=== PATIENT | male | born 1935 | race Caucasian/White ===

== ENCOUNTER 2016-11-03 12:04 | Inpatient (IN) ==
--- NOTE | 2016-11-03 14:27 | Emergency Department Note ---
Arrival - Arrival Chief Complaint: Extremity Problem Stated Complaint: possible blood clot weakness in legs ED Nursing Triage Note: Pt states that he is having pain in his left leg and left groin area onset yesetrday after cutting grass Mode of Arrival: Wheelchair Limitations: No Limitations Source: Patient Time Seen by Provider: 11/03/16 14:16 - History of Present Illness HPI Narrative: The patient complains of pain in the left groin, thigh and posterior knee for the past 3-4 days. It got much worse yesterday after cutting the grass. He also complains of weakness in his legs. This has been going on for approximately 2 weeks, since he had a back injection at the pain clinic. 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 He was also diagnosed with a superficial venous thrombus in the right leg approximately 2 weeks ago. He is on Coumadin. He denies any shortness of breath or other symptoms. Allergies/Adverse Reactions: Allergies Allergy/AdvReac Type Severity Reaction Status Date / Time No Known Allergies Allergy Unverified 05/07/16 11:41 Home Medications: Home Medications Medication Instructions Recorded Confirmed Type Allopurinol 300 mg PO DAILY 05/07/16 11/03/16 History Amitriptyline HCl 100 mg PO DAILY 05/07/16 11/03/16 History Cyanocobalamin (Vitamin B-12) 1,000 mcg PO Q30D 05/07/16 11/03/16 History [Vitamin B-12] Finasteride 5 mg PO DAILY 05/07/16 11/03/16 History Gabapentin 400 mg PO 5X DAILY 05/07/16 11/03/16 History Meclizine HCl 25 mg PO TID 05/07/16 11/03/16 History Terazosin HCl 10 mg PO DAILY 05/07/16 11/03/16 History Theophylline ER Tab 300 mg PO BID W/MEALS 05/07/16 11/03/16 History metFORMIN [Glucophage] 500 mg PO QID 05/07/16 11/03/16 History Diazepam Tab [Valium Tab] 2 mg PO DAILY PRN 11/03/16 11/03/16 History Losartan [Cozaar] 25 mg PO DAILY 11/03/16 11/03/16 History Multivitamin (Ocuvite) [Ocuvite] 1 tablet PO DAILY 11/03/16 11/03/16 History Omeprazole [Prilosec] 20 mg PO DAILY 11/03/16 11/03/16 History Warfarin [Coumadin] 2 mg PO DAILY 11/03/16 11/03/16 History Review of System - Review of System 12 point system: reviewed and no additional remarkable complaints except as stated - Review of System Musculoskeletal: Present: leg pain Medical,Surgical,& Family Hx - Medical History Cardio: History of: Hypertension Neurology: History of: Neurological Problems (Neuropathy) Endocrine: History of: Diabetes Mellitus (NIDDM) Musculoskeletal: History of: Back/Neck Problems (Chronic back pain, sees pain clinic) Hematology: History of: Clotting Problems (Multiple DVTs) Other: History of: Miscellaneous Medical Problems (DVT) - Surgical History HEENT Surgeries: Surgical HX of: Eye Surgery (cataracts) Abdominal Surgeries: Surgical HX of: Appendectomy Orthopedic Surgeries: Surgical HX of;: Total Knee Replacement (Bilateral) - Family History Family History: Reports;: Family Heart Disease (mother) - Social History Smoking Status: Never smoker Frequency of Alcohol Use: None Type of Drug Use: None Exam Physical Examination: GENERAL: Alert. No acute distress. HEENT: Normocephalic and atraumatic. There is no nasal drainage. No pharyngeal erythema or exudate. NECK: Normal inspection. Supple. No lymphadenopathy or meningismus. LUNGS: No respiratory distress. Clear to auscultation bilaterally, no wheezes, rales or rhonchi. HEART: Regular rate and rhythm. ABDOMEN: Soft, nontender and nondistended with normoactive bowel sounds. BACK: Normal inspection. SKIN: Color normal. Warm and dry. EXTREMITIES: There is tenderness in the left groin and the upper calf and popliteal fossa on the left. No cord palpated. Homans positive. There is pitting edema to the mid tibias bilaterally. The left is slightly worse than the right. There is a slightly indurated superficial vein on the right medial calf and the left inner thigh. Range of motion is full bilaterally and both lower extremities are neurovascularly intact. The remainder of the extremity exam is normal. NEUROLOGICAL/PSYCHIATRIC: Alert and oriented -3 with normal mood and affect. Cranial nerves normal. No motor or sensory deficit. Vital Signs: Vital Signs Temperature 98.1 F 11/03/16 12:21 Pulse Rate 84 11/03/16 15:03 Respiratory Rate 20 11/03/16 15:03 Blood Pressure 153/81 11/03/16 15:03 O2 Sat by Pulse Oximetry 96 11/03/16 15:03 Course - Reevaluation(s) Reevaluation #1: The patient has an acute DVT. His INR is subtherapeutic. I discussed patient with the hospitalist service who will see him and admit. Time: 15:50 Results - Labs CBC & BMP: 11/03/16 15:10 Lab Results: I have reviewed the patients labs Labs: Laboratory Tests 11/03/16 15:10 INR 1.4 PT Patient/Control Mix 15.0 D-Dimer, Quantitative 13.7 - Impressions Doppler of the left lower extremity: There is noncompressible abnormal echogenic material within the lumen of the left common femoral, superficial femoral, and popliteal veins compatible with acute DVT. Hip x-ray showed mild osteoarthritis. Disposition Clinical Impression: Deep vein thrombosis of lower extremity Case discussed with: patient, patient's family Disposition: Still a Patient Condition: Stable Time of Disposition: 15:51
--- NOTE | 2016-11-03 14:51 | XRay Report ---
XR hip 2V LT Indication: Pain. Left hip 2 views: Joint space is maintained. Acetabular osteophyte development is mild in severity. No fracture. No dislocation. Patient is somewhat osteopenic. Visualized left hemipelvis is unremarkable. Impression: Mild left hip osteoarthritis. Osteopenia. PROCEDURE INTERPRETED AT [facility] [place] DEPARTMENT OF RADIOLOGY Final Report Signed by: David Shen M.D.
--- NOTE | 2016-11-03 15:06 | Ultrasound Report ---
History: Left leg swelling and pain Date: 11/03/2016 Study: Left lower extremity color-flow venous Doppler study Comparison exam: Bilateral venous ultrasound May 11, 2016 Color Doppler, wave form analysis, and compression analysis of the deep veins of the left lower extremity from the common femoral vein level through the popliteal vein level was performed. There is noncompressible abnormal echogenic material within the lumen of the left common femoral, superficial femoral, and popliteal veins compatible with acute DVT. Preliminary verbal report was given to Dr. Garcia at 2:58 PM. Critical test result. Ultrasound images were captured and archived Impression: Acute DVT left lower extremity PROCEDURE INTERPRETED AT [facility] DEPARTMENT OF RADIOLOGY Final Report Signed by: Dr. Dariela Perez
[2016-11-03 15:20] LABS: Basophils % 0.5 % (0.0-0.8); Eosinophils # 0.2 10*3/uL (0.0-0.87); Eosinophils % 1.9 % (0.00-10.9); Hematocrit 35.7 VOL% (42.0-52.0); Hemoglobin 12.2 GM/DL (14.0-18.0); Immature Granulocytes % 0.5 %; Immature Granulocytes Absolute 0.04 #; Lymphocytes # 1.4 10*3/uL (1.4-4.0); Lymphocytes % 16.8 % (21.2-54.2); Mean Corpuscular HGB Conc 34.2 GM/DL (32-36); Mean Corpuscular Hemoglobin 31 PG (27-34); Mean Corpuscular Volume 89.7 FL (87-102); Mean Platelet Volume 10.9 FL (9.6-12.0); Monocytes # 1.1 10*3/uL (0.11-0.8); Monocytes % 13.2 % (1.7-12.7); Neutrophils # 5.7 10*3/uL (1.4-7.4); Neutrophils % 67.1 % (38.7-73.9); Platelet Count 133 T/CUMM (130-400); Red Blood Count 3.98 MC/CUMM (3.8-5.5); White Blood Count 8.5 T/CUMM (4-12)
[2016-11-03 15:32] LABS: INR 1.4; Partial Thromboplastin Time 32.7 SECS (0-40)
[2016-11-03 15:40] LABS: D-Dimer 13.7 MG/L FEU
[2016-11-03 15:43] LABS: Calcium 9.2 MG/DL (8.5-10.1); Osmolality,Calculated 280.5 MOS/KG (273-304); Potassium 4.6 MMOL/L (3.5-5.1)
[2016-11-03] MEDS ORDERED: ACETAMINOPHEN 325 MG TABLET PO PRN (16:47)
[2016-11-03] MEDS ORDERED: DEXTROSE 50% 25 GM/50 ML VIAL IV PRN (16:47)
[2016-11-03] MEDS ORDERED: GLUCAGON 1 MG VIAL IM PRN (16:47)
[2016-11-03] MEDS ORDERED: DIAZEPAM 2 MG TABLET PO PRN (16:51)
--- NOTE | 2016-11-03 17:03 | Hospitalist History & Physical ---
Assessment and Plan (1) Hypertension Status: Acute Current Visit: No Qualifiers: Hypertension type: essential hypertension Qualified Code(s): I10 - Essential (primary) hypertension (2) Chronic anticoagulation Status: Acute Current Visit: No (3) Deep vein thrombosis of lower extremity Status: Acute Assessment and plan: We will admit the patient our service. Patient will be placed on monitored bed. We will give him full dose Lovenox. Increase his Coumadin to 5 mg p.o. daily starting today. Patient will most likely need to be discharged with Lovenox and increase Coumadin dose. Continue other home meds as appropriate. Current Visit: Yes History of Present Illness Chief complaint: Lower extremity swelling History of present illness: Mr. Louise Ahumada is a 81 year old male with past medical history significant for DVTs diabetes hypertension and neuropathy who is in his normal state of health until past few days. Patient noted his lower extremity have been swelling. He had recently had a epidural injection to where he was taken off his anticoagulants. It was not bridged. No Lovenox was given to this patient. He was restarted on his Coumadin. He is found to be subtherapeutic and I was consulted to admit him. Home Medications Medication Instructions Recorded Confirmed Type Allopurinol 300 mg PO DAILY 05/07/16 11/03/16 History Amitriptyline HCl 100 mg PO DAILY 05/07/16 11/03/16 History Cyanocobalamin (Vitamin B-12) 1,000 mcg PO Q30D 05/07/16 11/03/16 History [Vitamin B-12] Finasteride 5 mg PO DAILY 05/07/16 11/03/16 History Gabapentin 400 mg PO 5X DAILY 05/07/16 11/03/16 History Meclizine HCl 25 mg PO TID 05/07/16 11/03/16 History Terazosin HCl 10 mg PO DAILY 05/07/16 11/03/16 History Theophylline ER Tab 300 mg PO BID W/MEALS 05/07/16 11/03/16 History metFORMIN [Glucophage] 500 mg PO QID 05/07/16 11/03/16 History Diazepam Tab [Valium Tab] 2 mg PO DAILY PRN 11/03/16 11/03/16 History Losartan [Cozaar] 25 mg PO DAILY 11/03/16 11/03/16 History Multivitamin (Ocuvite) [Ocuvite] 1 tablet PO DAILY 11/03/16 11/03/16 History Omeprazole [Prilosec] 20 mg PO DAILY 11/03/16 11/03/16 History Warfarin [Coumadin] 2 mg PO DAILY 11/03/16 11/03/16 History Allergies Allergy/AdvReac Type Severity Reaction Status Date / Time No Known Allergies Allergy Unverified 05/07/16 11:41 Medical,Surgical,& Family Hx - Medical History Cardio: History of: Hypertension Neurology: History of: Neurological Problems (Neuropathy) Endocrine: History of: Diabetes Mellitus (NIDDM) Musculoskeletal: History of: Back/Neck Problems (Chronic back pain, sees pain clinic) Hematology: History of: Clotting Problems (Multiple DVTs) Other: History of: Miscellaneous Medical Problems (DVT) - Surgical History HEENT Surgeries: Surgical HX of: Eye Surgery (cataracts) Abdominal Surgeries: Surgical HX of: Appendectomy Orthopedic Surgeries: Surgical HX of;: Total Knee Replacement (Bilateral) - Family History Family History: Reports;: Family Heart Disease (mother) - Social History Smoking Status: Never smoker Frequency of Alcohol Use: None Type of Drug Use: None 12 point system: reviewed and no additional remarkable complaints except as stated Exam - Constitutional Vitals: Period Temp Pulse Resp BP Sys/Nevarez Pulse Ox Last 24 Hr 98.1 F 71-84 20-20 144-153/81-94 96-97 General appearance: normal weight - Head Head exam: Present: normal inspection - Eye Eye exam: Present: EOMI Pupils: Present: SUNSHINE - ENT ENT exam: Present: normal exam - Neck Neck exam: Present: normal inspection - Respiratory Respiratory exam: Present: clear to auscultation bilaterally - Cardiovascular Cardiovascular exam: Present: regular rate and rhythm - GI/Abdominal GI/Abdominal exam: Present: normal bowel sounds - Extremities Exam Extremities exam: Present: other (Patient does have tenderness in the left groin area. There is also tenderness noted in the popliteal fossa. There is some mild pitting edema bilaterally left greater than right. Sensation is intact) - Back Exam Back exam: Present: normal inspection - Neurological Exam Neurological exam: Present: alert, oriented X3 - Psychiatric Psychiatric exam: Present: normal affect, normal mood - Skin Skin exam: Present: normal color Results - Labs CBC & BMP: 11/03/16 15:10 11/03/16 15:10
[2016-11-03] MEDS: GABAPENTIN 400 MG CAPSULE PO SCH ×2 (17:30→21:55)
[2016-11-03] MEDS: metFORMIN 500 MG TABLET PO SCH ×2 (17:30→21:55)
[2016-11-03] MEDS: WARFARIN 5 MG TABLET PO SCH (17:30)
[2016-11-03] MEDS: THEOPHYLLINE ER 300 MG TABLET PO SCH (17:31)
[2016-11-03] MEDS: ENOXAPARIN 100 MG/ML SYRINGE SUBCUT SCH (17:44)
[2016-11-03] MEDS: INSULIN REGULAR 100 UNIT/ML SUBCUT SCH (21:55)
[2016-11-03] MEDS: MECLIZINE 25 MG TABLET PO SCH (21:55)
[2016-11-04] MEDS: GABAPENTIN 400 MG CAPSULE PO SCH ×5 (05:53→21:55)
[2016-11-04] MEDS: ENOXAPARIN 100 MG/ML SYRINGE SUBCUT SCH ×2 (05:53→20:55)
[2016-11-04 06:49] LABS: INR 1.4; PT Patient Result 15.4 SECS
[2016-11-04] MEDS: THEOPHYLLINE ER 300 MG TABLET PO SCH ×2 (09:16→16:18)
[2016-11-04] MEDS: MULTIVITAMIN (OCUVITE) TABLET PO SCH (09:16)
[2016-11-04] MEDS: metFORMIN 500 MG TABLET PO SCH ×4 (09:16→20:52)
[2016-11-04] MEDS: FINASTERIDE 5 MG TABLET PO SCH (09:17)
[2016-11-04] MEDS: LOSARTAN 25 MG TABLET PO SCH (09:17)
[2016-11-04] MEDS: MECLIZINE 25 MG TABLET PO SCH ×3 (09:17→20:52)
[2016-11-04] MEDS: TERAZOSIN 5 MG CAPSULE PO SCH (09:17)
[2016-11-04] MEDS: INSULIN REGULAR 100 UNIT/ML SUBCUT SCH ×4 (09:17→20:55)
[2016-11-04] MEDS: AMITRIPTYLINE 100 MG TABLET PO SCH (09:17)
[2016-11-04] MEDS: ALLOPURINOL 300 MG TABLET PO SCH (09:17)
[2016-11-04] MEDS: PANTOPRAZOLE 40 MG TABLET PO SCH (09:17)
--- NOTE | 2016-11-04 13:26 | Hospitalist Progress Note ---
Assessment and Plan (1) Diabetes mellitus type 2 in nonobese Status: Chronic Assessment and plan: Metformin SSI Current Visit: No (2) Hypertension Status: Chronic Assessment and plan: Home meds Current Visit: No Qualifiers: Hypertension type: essential hypertension Qualified Code(s): I10 - Essential (primary) hypertension (3) Deep vein thrombosis of lower extremity Status: Acute Assessment and plan: On lovenox Coumadin increased Current Visit: Yes Hospitalist: Subjective Interval history: No acute events overnight. This morning patient without complaints, reports that his leg pain is much better. Encouraged to ambulate some today. Family arrived later this morning and report that patient is still complaining of leg pain and is very weak. Will plan for discharge tomorrow on lovenox and coumadin with pcp follow-up. Exam - Constitutional Vitals: Period Temp Pulse Resp BP Sys/Nevarez Pulse Ox Last 24 Hr 97.0 F-100.4 F 53-95 18-22 112-162/66-94 92-98 General appearance: over weight - Head Head exam: Present: normocephalic, atraumatic - Eye Eye exam: Present: EOMI Pupils: Present: SUNSHINE - ENT ENT exam: Present: normal exam - Neck Neck exam: Present: normal inspection - Respiratory Respiratory exam: Present: clear to auscultation bilaterally. Absent: rhonchi, wheezes - Cardiovascular Cardiovascular exam: Present: regular rate and rhythm - GI/Abdominal GI/Abdominal exam: Present: normal bowel sounds, soft. Absent: tenderness, rebound - Extremities Exam Extremities exam: Present: normal inspection - Back Exam Back exam: Present: normal inspection - Neurological Exam Neurological exam: Present: alert, oriented X3 - Psychiatric Psychiatric exam: Present: normal affect, normal mood - Skin Skin exam: Present: warm, intact Results - Labs CBC & BMP: 11/03/16 15:10 11/03/16 15:10 Specialty Discharge - Follow Up or Referrals Follow up with: Elliott Guerin DO [Primary Care Provider] - 11/08/16 10:30 am
[2016-11-04] MEDS: WARFARIN 5 MG TABLET PO SCH (17:31)
[2016-11-05] MEDS: GABAPENTIN 400 MG CAPSULE PO SCH ×2 (05:26→09:58)
[2016-11-05 06:05] LABS: INR 1.5; PT Patient Result 16.7 SECS
[2016-11-05 08:02] VITALS: BP 167/79
[2016-11-05] MEDS: INSULIN REGULAR 100 UNIT/ML SUBCUT SCH (08:14)
[2016-11-05] MEDS: ENOXAPARIN 100 MG/ML SYRINGE SUBCUT SCH (09:57)
[2016-11-05] MEDS: FINASTERIDE 5 MG TABLET PO SCH (09:57)
[2016-11-05] MEDS: MULTIVITAMIN (OCUVITE) TABLET PO SCH (09:57)
[2016-11-05] MEDS: MECLIZINE 25 MG TABLET PO SCH (09:57)
[2016-11-05] MEDS: PANTOPRAZOLE 40 MG TABLET PO SCH (09:57)
[2016-11-05] MEDS: ALLOPURINOL 300 MG TABLET PO SCH (09:57)
[2016-11-05] MEDS: LOSARTAN 25 MG TABLET PO SCH (09:57)
[2016-11-05] MEDS: AMITRIPTYLINE 100 MG TABLET PO SCH (09:57)
[2016-11-05] MEDS: TERAZOSIN 5 MG CAPSULE PO SCH (09:57)
[2016-11-05] MEDS: THEOPHYLLINE ER 300 MG TABLET PO SCH (09:57)
[2016-11-05] MEDS: metFORMIN 500 MG TABLET PO SCH (09:57)
--- NOTE | 2016-11-05 10:21 | Discharge Summary ---
<Xiomara Barreranikkie - Last Filed: 11/05/16 10:12> Hospital Course - Hospital Course Hospital Course: Mr. Quijano is a 81 yr old white male with DVTs, htn, renal insufficiency, panceratitis, and DM that presented to the ED on 11/03 for further evaluation of lower extremity edema and pain. On examination in the ED, patient was found to have an acute left extremity DVT. INR was noted to be 1.4. Pt. was admitted to the hospitalist program for evaluation and treatment. His coumadin was increased to 5 mg. He was started on weight based lovenox. Pt. is stable today and ready for discharge. Pt. instructed to follow up with his PCP early next week. Specialty Discharge - Follow Up or Referrals Follow up with: Elliott Guerin DO [Primary Care Provider] - 11/08/16 10:30 am Discharge Plan - Discharge Data Disposition: Disch To Home/Self Care - Discharge Medications New Warfarin [Coumadin] 5 mg PO DAILY@1800 #30 tablet Enoxaparin [Lovenox] 150 mg SUBCUT Q24H #7 syringe Continue Finasteride 5 mg PO DAILY Gabapentin 400 mg PO 5X DAILY Allopurinol 300 mg PO DAILY Amitriptyline HCl 100 mg PO DAILY Theophylline ER Tab 300 mg PO BID W/MEALS Terazosin HCl 10 mg PO DAILY Meclizine HCl 25 mg PO TID metFORMIN [Glucophage] 500 mg PO QID Cyanocobalamin (Vitamin B-12) [Vitamin B-12] 1,000 mcg PO Q30D Multivitamin (Ocuvite) [Ocuvite] 1 tablet PO DAILY Diazepam Tab [Valium Tab] 2 mg PO DAILY PRN PRN Reason: Dizziness glipiZIDE [Glipizide] 5 mg PO BID Omeprazole [Prilosec] 20 mg PO DAILY Losartan [Cozaar] 25 mg PO DAILY Discontinued Warfarin [Coumadin] 2 mg PO DAILY - Follow Up or Referral Follow Up: Elliott Guerin DO [Primary Care Provider] - 11/08/16 10:30 am - Forms/Instructions Exam - Constitutional Vitals: Period Temp Pulse Resp BP Sys/Nevarez Pulse Ox Last 24 Hr 96.6 F-98.5 F 65-92 18-20 114-167/58-79 92-97 Discharge Results Labs on day of discharge: Labs from last 24 hours 11/05/16 11/05/16 11/04/16 07:29 04:41 20:38 INR 1.5 PT Patient/Control Mix 16.7 POC Glucose 137 H 150 H 11/04/16 11/04/16 15:13 11:23 INR PT Patient/Control Mix POC Glucose 183 H 165 H DS: Provider Date of admission: 11/04/16 13:09 Primary care physician: Elliott Guerin DO Attending physician on admission: David Ayala MD Consults: 11/04/16 13:07 Consult to Physical Therapy [CONS] Routine Reason for Physical Therapy: Evaluate and Treat Discharging clinician: Di Barrera NP <Kathleen Bhakta - Last Filed: 11/05/16 10:28> Hospital Course - Time spent with patient Time with patient DS: Less than 30 minutes (25) Diagnosis - Discharge Diagnosis (1) Diabetes mellitus type 2 in nonobese Status: Chronic (2) Hypertension Status: Chronic (3) Deep vein thrombosis of lower extremity Status: Chronic Discharge Plan - Discharge Data Condition at Discharge: Stable Discharge Diet: advance to your usual diet Activity: increase activity as tolerated Hygiene: no restrictions Weight Bearing at Discharge: weight bear as tolerated Driving: no restrictions Contact your physician if you experience:: fever over 101, Redness or swelling, Shortness of breath Exam - Constitutional General appearance: over weight - Head Head exam: Present: normocephalic, atraumatic - Eye Eye exam: Present: EOMI Pupils: Present: SUNSHINE - ENT ENT exam: Present: normal exam - Neck Neck exam: Present: normal inspection - Respiratory Respiratory exam: Present: clear to auscultation bilaterally. Absent: wheezes - Cardiovascular Cardiovascular exam: Present: regular rate and rhythm - GI/Abdominal GI/Abdominal exam: Present: normal bowel sounds, soft. Absent: tenderness, rebound - Extremities Exam Extremities exam: Present: normal inspection - Back Exam Back exam: Present: normal inspection - Neurological Exam Neurological exam: Present: alert, oriented X3 - Psychiatric Psychiatric exam: Present: normal affect, normal mood - Skin Skin exam: Present: warm, intact
[2016-11-29] MEDS ORDERED: CYANOCOBALAMIN 500 MCG TABLET PO SCH (09:00)
== END 2016-11-05 11:15 | disposition home or self-care (01) | DRG 301 ==
LOC: N.ED 12:04 → N.EDINP 12:04 → SUATTDRO 16:06 → N.2E 17:07
PROVIDERS: ADMIT Internal Medicine; ATTEND Internal Medicine

== ENCOUNTER 2017-08-11 14:08 | Inpatient (IN) ==
[2017-08-11] MEDS ORDERED: LOPERAMIDE 2 MG CAPSULE PO STA (14:46)
[2017-08-11] MEDS ORDERED: ONDANSETRON 4 MG/2 ML VIAL IV STA (14:46)
[2017-08-11] MEDS ORDERED: SODIUM CHLORIDE 0.9% 1,000 ML IV STA ×2 (14:46→18:04)
[2017-08-11] MEDS ORDERED: LOPERAMIDE 2 MG CAPSULE ONE (15:26)
[2017-08-11] MEDS ORDERED: ONDANSETRON 4 MG/2 ML VIAL ONE (15:26)
[2017-08-11 15:30] LABS: Basophils % 0.1 % (0.0-0.8); Eosinophils % 0.2 % (0.00-10.9); Hemoglobin 13.3 GM/DL (14.0-18.0); Immature Granulocytes % 0.4 %; Immature Granulocytes Absolute 0.04 #; Lymphocytes # 0.5 10*3/uL (1.4-4.0); Lymphocytes % 4.5 % (21.2-54.2); Mean Corpuscular HGB Conc 32.4 GM/DL (32-36); Mean Corpuscular Hemoglobin 29 PG (27-34); Mean Corpuscular Volume 88.9 FL (87-102); Mean Platelet Volume 11.3 FL (9.6-12.0); Monocytes # 0.8 10*3/uL (0.11-0.8); Monocytes % 7.9 % (1.7-12.7); Neutrophils # 8.9 10*3/uL (1.4-7.4); Neutrophils % 86.9 % (38.7-73.9); Platelet Count 131 T/CUMM (130-400); Red Blood Count 4.61 MC/CUMM (3.8-5.5); Red Cell Distribution Width 14.7 % (9.3-17.3); White Blood Count 10.2 T/CUMM (4-12)
[2017-08-11 15:49] LABS: Albumin 3.8 G/DL (3.4-5.0); Bilirubin,Total 2.5 MG/DL (0.2-1.0); Calcium 9.4 MG/DL (8.5-10.1); Osmolality,Calculated 283.7 MOS/KG (273-304); Potassium 4.4 MMOL/L (3.5-5.1); Total Protein 7.8 G/DL (6.4-8.3)
[2017-08-11 16:11] LABS: Apearance,Urine CLEAR (Clear); Bilirubin,Urine Negative (Negative); Blood, Urine Negative (Negative); Glucose,Urine (UA) Negative (Negative); Ketones,Urine Negative (Negative); Nitrite,Urine Negative (Negative); Protein,Urine 100 MG/DL; RBC,Urine 6 /HPF (0-4); Squamous Epithelial Cell,Urine Occasional /HPF (0-10); Urine Color Amber (Yellow); Urine Specific Gravity 1.015 (1.001-1.035); WBC,Urine 3 /HPF (0-6)
[2017-08-11] MEDS ORDERED: PIPERACILLIN/TAZOBACTAM 4,500 MG in SODIUM CHLORIDE 0.9% 100 ML IV STA (16:27)
[2017-08-11] MEDS ORDERED: PIPERACILLIN/TAZOBACTAM 4,500 MG VIAL IV ONE (16:52)
[2017-08-11 17:13] LABS: Band Neutrophils 20 % (0-10); Lymphocytes 1 % (20-55); Segmented Neutrophils 73 % (50-85); Total Cells Counted 100
[2017-08-11 17:15] LABS: Anisocytosis 1+; Ovalocytes Few; Platelet Estimate Normal
[2017-08-11 17:32] LABS: Lactic Acid 3.4 MMOL/L (0.4-2.0)
[2017-08-11] MEDS ORDERED: ACETAMINOPHEN 500 MG TABLET ONE (17:37)
[2017-08-11] MEDS ORDERED: ACETAMINOPHEN 500 MG TABLET PO STA (17:41)
[2017-08-11] MEDS ORDERED: ONDANSETRON 4 MG/2 ML VIAL IV PRN (20:14)
[2017-08-11] MEDS ORDERED: GLUCAGON 1 MG VIAL IM PRN (21:06)
[2017-08-11] MEDS ORDERED: DEXTROSE 50% 25 GM/50 ML VIAL IV PRN (21:06)
[2017-08-11] MEDS ORDERED: IBUPROFEN 600 MG TABLET PO PRN (21:20)
[2017-08-11] MEDS: GABAPENTIN 400 MG CAPSULE PO SCH (22:15)
[2017-08-11] MEDS: SODIUM CHLORIDE 0.9% 1,000 ML IV SCH (22:19)
[2017-08-11] MEDS: cefTRIAXone 1,000 MG in SODIUM CHLORIDE 0.9% 100 ML IV SCH (22:24)
[2017-08-11 23:15] LABS: INR 2.6; Partial Thromboplastin Time 38.3 SECS (0-40)
[2017-08-11 23:21] LABS: INR 2.6
[2017-08-11 23:23] LABS: Lactic Acid 2.8 MMOL/L (0.4-2.0)
[2017-08-11 23:28] LABS: PT Patient Result 26.2 SECS; PT Patient Result 26.4 SECS
[2017-08-12 00:23] LABS: Hepatitis A Ab IgM Quant 0.14 Index; Hepatitis A Ab IgM Result Negative (Negative); Hepatitis B Core IgM Quant 0.19 Index; Hepatitis B Core IgM Result Negative (Negative); Hepatitis B Surface Ag Quant 0.16 Index; Hepatitis B Surface Ag Result Negative (Negative); Hepatitis C Virus Ab Quant 0.18 Index; Hepatitis C Virus Ab Result Negative (Negative)
[2017-08-12] MEDS: LACTULOSE 20 GM/30 ML UDCUP PO SCH ×5 (01:22→23:56)
[2017-08-12 02:19] LABS: Basophils % 0.2 % (0.0-0.8); Hematocrit 35.2 VOL% (42.0-52.0); Hemoglobin 12.2 GM/DL (14.0-18.0); Immature Granulocytes % 0.3 %; Immature Granulocytes Absolute 0.04 #; Lymphocytes # 0.7 10*3/uL (1.4-4.0); Lymphocytes % 5.8 % (21.2-54.2); Mean Corpuscular HGB Conc 34.7 GM/DL (32-36); Mean Corpuscular Hemoglobin 30 PG (27-34); Mean Corpuscular Volume 85.6 FL (87-102); Mean Platelet Volume 11.5 FL (9.6-12.0); Monocytes # 0.5 10*3/uL (0.11-0.8); Monocytes % 4.2 % (1.7-12.7); Neutrophils # 10.6 10*3/uL (1.4-7.4); Neutrophils % 89.5 % (38.7-73.9); Platelet Count 126 T/CUMM (130-400); Red Blood Count 4.11 MC/CUMM (3.8-5.5); Red Cell Distribution Width 14.7 % (9.3-17.3); White Blood Count 11.8 T/CUMM (4-12)
[2017-08-12 02:44] LABS: Albumin 3.3 G/DL (3.4-5.0); Bilirubin,Total 4.7 MG/DL (0.2-1.0); Calcium 8.3 MG/DL (8.5-10.1); Osmolality,Calculated 279.5 MOS/KG (273-304); Potassium 4.2 MMOL/L (3.5-5.1); Total Protein 6.2 G/DL (6.4-8.3)
[2017-08-12] MEDS: INSULIN REGULAR 100 UNIT/ML SUBCUT SCH ×4 (08:54→21:03)
[2017-08-12] MEDS: glipiZIDE 10 MG TABLET PO SCH (09:07)
[2017-08-12] MEDS: MULTIVITAMIN (OCUVITE) TABLET PO SCH (09:07)
[2017-08-12] MEDS: LOSARTAN 25 MG TABLET PO SCH (09:07)
[2017-08-12] MEDS: GABAPENTIN 600 MG TABLET PO SCH ×2 (09:07→11:29)
[2017-08-12] MEDS: PANTOPRAZOLE 40 MG TABLET PO SCH (09:08)
[2017-08-12] MEDS: FINASTERIDE 5 MG TABLET PO SCH (09:08)
[2017-08-12] MEDS: THEOPHYLLINE ER 300 MG TABLET PO SCH ×2 (09:08→17:09)
[2017-08-12] MEDS: SODIUM CHLORIDE 0.9% 1,000 ML IV SCH ×3 (11:14→21:04)
[2017-08-12] MEDS ORDERED: WARFARIN 4 MG TABLET PO SCH (18:00)
[2017-08-12] MEDS: ALLOPURINOL 300 MG TABLET PO SCH (18:15)
[2017-08-12] MEDS: TERAZOSIN 5 MG CAPSULE PO SCH (18:15)
[2017-08-12] MEDS: cefTRIAXone 1,000 MG in SODIUM CHLORIDE 0.9% 100 ML IV SCH (21:05)
[2017-08-12] MEDS: GABAPENTIN 400 MG CAPSULE PO SCH (21:09)
[2017-08-13] MEDS: SODIUM CHLORIDE 0.9% 1,000 ML IV SCH ×5 (02:51→21:17)
[2017-08-13 05:32] LABS: Basophils % 0.2 % (0.0-0.8); Eosinophils % 0.1 % (0.00-10.9); Hematocrit 36.5 VOL% (42.0-52.0); Hemoglobin 12.6 GM/DL (14.0-18.0); Immature Granulocytes % 0.3 %; Immature Granulocytes Absolute 0.03 #; Lymphocytes # 1.3 10*3/uL (1.4-4.0); Lymphocytes % 13.5 % (21.2-54.2); Mean Corpuscular HGB Conc 34.5 GM/DL (32-36); Mean Corpuscular Hemoglobin 30 PG (27-34); Mean Corpuscular Volume 86.5 FL (87-102); Mean Platelet Volume 12.2 FL (9.6-12.0); Monocytes # 0.7 10*3/uL (0.11-0.8); Monocytes % 6.8 % (1.7-12.7); Neutrophils # 7.5 10*3/uL (1.4-7.4); Neutrophils % 79.1 % (38.7-73.9); Platelet Count 110 T/CUMM (130-400); Red Blood Count 4.22 MC/CUMM (3.8-5.5); Red Cell Distribution Width 15.1 % (9.3-17.3); White Blood Count 9.5 T/CUMM (4-12)
[2017-08-13] MEDS: LACTULOSE 20 GM/30 ML UDCUP PO SCH ×4 (05:53→23:42)
[2017-08-13 05:55] LABS: INR 2.4
[2017-08-13 06:02] LABS: Calcium 8.2 MG/DL (8.5-10.1); Osmolality,Calculated 282.3 MOS/KG (273-304); PT Patient Result 24.5 SECS; Potassium 3.8 MMOL/L (3.5-5.1)
[2017-08-13] MEDS: INSULIN REGULAR 100 UNIT/ML SUBCUT SCH ×4 (08:28→22:40)
[2017-08-13] MEDS: glipiZIDE 10 MG TABLET PO SCH (08:53)
[2017-08-13] MEDS: FINASTERIDE 5 MG TABLET PO SCH (08:53)
[2017-08-13] MEDS: GABAPENTIN 600 MG TABLET PO SCH ×2 (08:53→13:30)
[2017-08-13] MEDS: THEOPHYLLINE ER 300 MG TABLET PO SCH ×2 (08:53→16:57)
[2017-08-13] MEDS: PANTOPRAZOLE 40 MG TABLET PO SCH (08:53)
[2017-08-13] MEDS: LOSARTAN 25 MG TABLET PO SCH (08:53)
[2017-08-13] MEDS: MULTIVITAMIN (OCUVITE) TABLET PO SCH (08:53)
[2017-08-13] MEDS ORDERED: WARFARIN 3 MG TABLET PO SCH (18:00)
[2017-08-13] MEDS: ALLOPURINOL 300 MG TABLET PO SCH (18:17)
[2017-08-13] MEDS: TERAZOSIN 5 MG CAPSULE PO SCH (18:17)
[2017-08-13] MEDS: GABAPENTIN 400 MG CAPSULE PO SCH (21:17)
[2017-08-13] MEDS: cefTRIAXone 1,000 MG in SODIUM CHLORIDE 0.9% 100 ML IV SCH (21:18)
[2017-08-14] MEDS: SODIUM CHLORIDE 0.9% 1,000 ML IV SCH ×4 (03:00→21:55)
[2017-08-14 04:35] LABS: Basophils % 0.2 % (0.0-0.8); Eosinophils # 0.1 10*3/uL (0.0-0.87); Eosinophils % 1.1 % (0.00-10.9); Hematocrit 32.8 VOL% (42.0-52.0); Hemoglobin 11.2 GM/DL (14.0-18.0); Immature Granulocytes % 0.7 %; Immature Granulocytes Absolute 0.04 #; Lymphocytes # 1.4 10*3/uL (1.4-4.0); Lymphocytes % 23.4 % (21.2-54.2); Mean Corpuscular HGB Conc 34.1 GM/DL (32-36); Mean Corpuscular Hemoglobin 29 PG (27-34); Mean Corpuscular Volume 86.1 FL (87-102); Mean Platelet Volume 11.9 FL (9.6-12.0); Monocytes # 0.6 10*3/uL (0.11-0.8); Monocytes % 10.3 % (1.7-12.7); Neutrophils # 3.9 10*3/uL (1.4-7.4); Neutrophils % 64.3 % (38.7-73.9); Platelet Count 117 T/CUMM (130-400); Red Blood Count 3.81 MC/CUMM (3.8-5.5); White Blood Count 6.1 T/CUMM (4-12)
[2017-08-14 04:55] LABS: Albumin 2.8 G/DL (3.4-5.0); Bilirubin,Direct 1.43 MG/DL (0.0-0.20); Bilirubin,Indirect 1.2 MG/DL (0.0-1.0); Bilirubin,Total 2.6 MG/DL (0.2-1.0); Potassium 3.7 MMOL/L (3.5-5.1); Total Protein 5.8 G/DL (6.4-8.3)
[2017-08-14 05:05] LABS: INR 1.7; PT Patient Result 17.3 SECS
[2017-08-14] MEDS: LACTULOSE 20 GM/30 ML UDCUP PO SCH ×4 (05:35→23:29)
[2017-08-14] MEDS: INSULIN REGULAR 100 UNIT/ML SUBCUT SCH ×3 (08:50→16:39)
[2017-08-14] MEDS: THEOPHYLLINE ER 300 MG TABLET PO SCH ×2 (09:07→16:53)
[2017-08-14] MEDS: glipiZIDE 10 MG TABLET PO SCH (09:07)
[2017-08-14] MEDS: MULTIVITAMIN (OCUVITE) TABLET PO SCH (09:07)
[2017-08-14] MEDS: FINASTERIDE 5 MG TABLET PO SCH (09:07)
[2017-08-14] MEDS: LOSARTAN 25 MG TABLET PO SCH (09:08)
[2017-08-14] MEDS: PANTOPRAZOLE 40 MG TABLET PO SCH (09:08)
[2017-08-14] MEDS: GABAPENTIN 600 MG TABLET PO SCH ×2 (09:10→12:20)
[2017-08-14] MEDS: TERAZOSIN 5 MG CAPSULE PO SCH (18:20)
[2017-08-14] MEDS: ALLOPURINOL 300 MG TABLET PO SCH (18:21)
[2017-08-14] MEDS: GABAPENTIN 400 MG CAPSULE PO SCH (21:26)
[2017-08-14] MEDS: traZODone 50 MG TABLET PO PRN (21:26)
[2017-08-15] MEDS: INSULIN REGULAR 100 UNIT/ML SUBCUT SCH ×5 (01:12→20:57)
[2017-08-15] MEDS: cefTRIAXone 1,000 MG in SODIUM CHLORIDE 0.9% 100 ML IV SCH (01:12)
[2017-08-15] MEDS: SODIUM CHLORIDE 0.9% 1,000 ML IV SCH ×2 (01:31→12:24)
[2017-08-15 06:44] LABS: Basophils % 0.5 % (0.0-0.8); Eosinophils # 0.1 10*3/uL (0.0-0.87); Eosinophils % 1.3 % (0.00-10.9); Hematocrit 34.2 VOL% (42.0-52.0); Hemoglobin 11.1 GM/DL (14.0-18.0); Immature Granulocytes Absolute 0.06 #; Lymphocytes # 1.3 10*3/uL (1.4-4.0); Lymphocytes % 21.6 % (21.2-54.2); Mean Corpuscular HGB Conc 32.5 GM/DL (32-36); Mean Corpuscular Hemoglobin 29 PG (27-34); Mean Corpuscular Volume 89.3 FL (87-102); Mean Platelet Volume 11.6 FL (9.6-12.0); Monocytes # 0.6 10*3/uL (0.11-0.8); Monocytes % 10.3 % (1.7-12.7); Neutrophils # 4.1 10*3/uL (1.4-7.4); Neutrophils % 65.3 % (38.7-73.9); Platelet Count 140 T/CUMM (130-400); Red Blood Count 3.83 MC/CUMM (3.8-5.5); Red Cell Distribution Width 15.1 % (9.3-17.3); White Blood Count 6.2 T/CUMM (4-12)
[2017-08-15] MEDS: LACTULOSE 20 GM/30 ML UDCUP PO SCH ×5 (06:46→23:09)
[2017-08-15 06:50] LABS: INR 1.3; PT Patient Result 13.2 SECS
[2017-08-15 07:08] LABS: Bilirubin,Total 1.8 MG/DL (0.2-1.0); Calcium 8.2 MG/DL (8.5-10.1); Osmolality,Calculated 283.1 MOS/KG (273-304); Potassium 3.7 MMOL/L (3.5-5.1); Total Protein 6.1 G/DL (6.4-8.3)
[2017-08-15] MEDS: THEOPHYLLINE ER 300 MG TABLET PO SCH ×2 (09:36→16:37)
[2017-08-15] MEDS: LOSARTAN 25 MG TABLET PO SCH ×2 (09:36→12:25)
[2017-08-15] MEDS: GABAPENTIN 600 MG TABLET PO SCH ×2 (09:36→12:24)
[2017-08-15] MEDS: glipiZIDE 10 MG TABLET PO SCH (09:36)
[2017-08-15] MEDS: PANTOPRAZOLE 40 MG TABLET PO SCH ×2 (09:37→12:24)
[2017-08-15] MEDS: MULTIVITAMIN (OCUVITE) TABLET PO SCH ×2 (09:37→12:24)
[2017-08-15] MEDS: FINASTERIDE 5 MG TABLET PO SCH ×2 (09:37→12:25)
[2017-08-15] MEDS ORDERED: fentaNYL 100 MCG/2 ML VIAL ONE (10:37)
[2017-08-15] MEDS ORDERED: ePHEDrine 50 MG/ML AMP ONE (10:37)
[2017-08-15] MEDS ORDERED: ONDANSETRON 4 MG/2 ML VIAL ONE (10:40)
[2017-08-15] MEDS ORDERED: LIDOCAINE 1% 5 ML VIAL ONE (10:40)
[2017-08-15] MEDS ORDERED: GLYCOPYRROLATE 0.4 MG/2 ML VIAL ONE (10:40)
[2017-08-15] MEDS ORDERED: SUCCINYLCHOLINE 200 MG/10 ML VIAL ONE (10:40)
[2017-08-15] MEDS ORDERED: PROPOFOL 200 MG/20 ML VIAL IV ONE (10:40)
[2017-08-15] MEDS ORDERED: GLUCAGON 1 MG VIAL ONE (10:54)
[2017-08-15] MEDS ORDERED: SEVOFLURANE 1 UNIT/15 MINUTE INH ONE (13:17)
[2017-08-15] MEDS ORDERED: LEVOFLOXACIN 750 MG TABLET PO ONE (15:11)
[2017-08-15] MEDS ORDERED: WARFARIN 5 MG TABLET PO ONE (15:13)
[2017-08-15] MEDS: TERAZOSIN 5 MG CAPSULE PO SCH ×2 (16:38→18:04)
[2017-08-15] MEDS: ALLOPURINOL 300 MG TABLET PO SCH ×2 (16:42→18:04)
[2017-08-15] MEDS: GABAPENTIN 400 MG CAPSULE PO SCH (20:58)
[2017-08-16] MEDS: traZODone 50 MG TABLET PO PRN (00:34)
[2017-08-16 06:01] LABS: INR 1.2; PT Patient Result 12.2 SECS
[2017-08-16 06:06] LABS: Albumin 2.9 G/DL (3.4-5.0); Bilirubin,Direct 0.8 MG/DL (0.0-0.20); Bilirubin,Indirect 0.7 MG/DL (0.0-1.0); Bilirubin,Total 1.5 MG/DL (0.2-1.0); Total Protein 5.9 G/DL (6.4-8.3)
[2017-08-16] MEDS: LACTULOSE 20 GM/30 ML UDCUP PO SCH (06:08)
[2017-08-16] MEDS: INSULIN REGULAR 100 UNIT/ML SUBCUT SCH ×4 (08:20→20:57)
[2017-08-16] MEDS: GABAPENTIN 600 MG TABLET PO SCH ×2 (09:28→11:44)
[2017-08-16] MEDS: LEVOFLOXACIN 750 MG TABLET PO SCH (09:28)
[2017-08-16] MEDS: MULTIVITAMIN (OCUVITE) TABLET PO SCH (09:28)
[2017-08-16] MEDS: FINASTERIDE 5 MG TABLET PO SCH (09:28)
[2017-08-16] MEDS: PANTOPRAZOLE 40 MG TABLET PO SCH (09:28)
[2017-08-16] MEDS: LOSARTAN 25 MG TABLET PO SCH (09:28)
[2017-08-16] MEDS: glipiZIDE 10 MG TABLET PO SCH (09:28)
[2017-08-16] MEDS: THEOPHYLLINE ER 300 MG TABLET PO SCH ×2 (09:28→17:34)
[2017-08-16] MEDS ORDERED: WARFARIN 5 MG TABLET PO ONE (11:09)
[2017-08-16] MEDS ORDERED: DIAZEPAM 2 MG TABLET PO PRN (11:18)
[2017-08-16] MEDS ORDERED: PHENOL 1.4% THROAT SPRAY 177 ML BOTTLE PO PRN (11:19)
[2017-08-16] MEDS: LOSARTAN 50 MG TABLET PO SCH (11:44)
[2017-08-16] MEDS: MECLIZINE 25 MG TABLET PO SCH ×2 (11:45→20:19)
[2017-08-16] MEDS: ALLOPURINOL 300 MG TABLET PO SCH ×2 (17:34→18:12)
[2017-08-16] MEDS: TERAZOSIN 5 MG CAPSULE PO SCH ×2 (17:34→18:12)
[2017-08-16] MEDS ORDERED: WARFARIN 3 MG TABLET PO SCH (18:00)
[2017-08-16] MEDS: GABAPENTIN 400 MG CAPSULE PO SCH (20:19)
[2017-08-17 07:19] LABS: INR 1.5; PT Patient Result 15.8 SECS
[2017-08-17] MEDS: INSULIN REGULAR 100 UNIT/ML SUBCUT SCH ×2 (07:39→12:06)
[2017-08-17] MEDS ORDERED: ENOXAPARIN 100 MG/ML SYRINGE SUBCUT SCH (08:30)
[2017-08-17] MEDS: LEVOFLOXACIN 750 MG TABLET PO SCH (09:26)
[2017-08-17] MEDS: THEOPHYLLINE ER 300 MG TABLET PO SCH (09:26)
[2017-08-17] MEDS: GABAPENTIN 600 MG TABLET PO SCH ×2 (09:26→12:10)
[2017-08-17] MEDS: FINASTERIDE 5 MG TABLET PO SCH (09:26)
[2017-08-17] MEDS: MULTIVITAMIN (OCUVITE) TABLET PO SCH (09:26)
[2017-08-17] MEDS: MECLIZINE 25 MG TABLET PO SCH (09:26)
[2017-08-17] MEDS: glipiZIDE 10 MG TABLET PO SCH (09:26)
[2017-08-17] MEDS: PANTOPRAZOLE 40 MG TABLET PO SCH (09:26)
[2017-08-17] MEDS: LOSARTAN 50 MG TABLET PO SCH (09:26)
[2017-08-17 12:10] VITALS: BP 151/75
[2017-08-29] MEDS ORDERED: CYANOCOBALAMIN 500 MCG TABLET PO SCH (09:00)
== END 2017-08-17 12:15 | disposition home health service (06) | DRG 872 ==
LOC: N.ED 14:08 → SUATTDRO 18:19 → N.EDINP 18:19 → N.TELEN 19:08 → N.5E 08-14 23:03
PROVIDERS: ADMIT Internal Medicine; ATTEND Family Medicine

== ENCOUNTER 2018-10-24 16:53 | Observation (INO) ==
[2018-10-24 18:23] LABS: Basophils % 0.5 % (0.0-0.8); Eosinophils # 0.2 10*3/uL (0.0-0.87); Eosinophils % 3.5 % (0.00-10.9); Hematocrit 39.6 VOL% (42.0-52.0); Hemoglobin 12.8 GM/DL (14.0-18.0); Immature Granulocytes % 0.2 %; Immature Granulocytes Absolute 0.01 #; Lymphocytes # 1.9 10*3/uL (1.4-4.0); Lymphocytes % 33.2 % (21.2-54.2); Mean Corpuscular HGB Conc 32.3 GM/DL (32-36); Mean Corpuscular Volume 89.8 FL (87-102); Mean Platelet Volume 10.9 FL (9.6-12.0); Monocytes % 9.4 % (1.7-12.7); Neutrophils % 53.2 % (38.7-73.9); Platelet Count 126 T/CUMM (130-400); Red Blood Count 4.41 MC/CUMM (3.8-5.5); Red Cell Distribution Width 14.1 % (9.3-17.3); White Blood Count 5.8 T/CUMM (4-12)
[2018-10-24 18:59] LABS: Calcium 9.2 MG/DL (8.5-10.1)
[2018-10-24 19:07] LABS: INR 8.6
[2018-10-24] MEDS ORDERED: PHYTONADIONE 10 MG/1 ML AMP SUBCUT STA (20:41)
[2018-10-24] MEDS ORDERED: PHYTONADIONE 10 MG/1 ML AMP SUBCUT ONE (22:20)
[2018-10-24] MEDS ORDERED: ONDANSETRON 4 MG/2 ML VIAL IV PRN (22:20)
[2018-10-24] MEDS ORDERED: traMADol 50 MG TABLET PO ONE (23:34)
[2018-10-24] MEDS ORDERED: GABAPENTIN 600 MG TABLET PO ONE (23:35)
[2018-10-25 05:20] LABS: Basophils % 0.4 % (0.0-0.8); Eosinophils # 0.2 10*3/uL (0.0-0.87); Eosinophils % 3.3 % (0.00-10.9); Hematocrit 36.1 VOL% (42.0-52.0); Hemoglobin 11.9 GM/DL (14.0-18.0); Immature Granulocytes % 0.6 %; Immature Granulocytes Absolute 0.03 #; Lymphocytes # 1.8 10*3/uL (1.4-4.0); Lymphocytes % 33.3 % (21.2-54.2); Mean Corpuscular Volume 88.5 FL (87-102); Mean Platelet Volume 10.9 FL (9.6-12.0); Monocytes % 12.3 % (1.7-12.7); Neutrophils % 50.1 % (38.7-73.9); Platelet Count 118 T/CUMM (130-400); Red Blood Count 4.08 MC/CUMM (3.8-5.5); White Blood Count 5.4 T/CUMM (4-12)
[2018-10-25 05:55] LABS: PT Patient Result 61.7 SECS
[2018-10-25 05:56] LABS: INR 5.8
[2018-10-25] MEDS ORDERED: PHYTONADIONE 5 MG/5 ML ORAL.SYR PO STA (10:49)
[2018-10-25] MEDS ORDERED: PHYTONADIONE 5 MG/5 ML ORAL.SYR PO ONE (11:00)
[2018-10-25] MEDS ORDERED: GABAPENTIN 400 MG CAPSULE PO SCH (12:50)
[2018-10-25 15:55] LABS: INR 2.2
[2018-10-25 16:02] LABS: PT Patient Result 23.7 SECS
[2018-10-25] MEDS: GABAPENTIN 600 MG TABLET PO SCH ×2 (16:27→20:58)
[2018-10-25] MEDS: INSULIN LISPRO 100 UNIT/ML SUBCUT SCH ×2 (16:34→20:59)
[2018-10-25] MEDS: glipiZIDE 10 MG TABLET PO SCH (20:59)
[2018-10-25] MEDS: metFORMIN 500 MG TABLET PO SCH (21:04)
[2018-10-26 05:19] LABS: INR 1.3; PT Patient Result 14.4 SECS
[2018-10-26] MEDS ORDERED: SODIUM CHLORIDE 0.9% 1,000 ML IV SCH (06:30)
[2018-10-26] MEDS ORDERED: LACTATED RINGERS 1,000 ML IV SCH (08:00)
[2018-10-26] MEDS ORDERED: LOSARTAN 25 MG TABLET PO SCH (09:00)
[2018-10-26] MEDS ORDERED: PROPOFOL 200 MG/20 ML VIAL IV ONE (09:00)
[2018-10-26] MEDS ORDERED: LIDOCAINE 2% 5 ML VIAL ONE (09:00)
[2018-10-26] MEDS: INSULIN LISPRO 100 UNIT/ML SUBCUT SCH (09:06)
[2018-10-26] MEDS: metFORMIN 500 MG TABLET PO SCH (11:38)
[2018-10-26] MEDS: GABAPENTIN 600 MG TABLET PO SCH (11:38)
[2018-10-26] MEDS: glipiZIDE 10 MG TABLET PO SCH (11:39)
[2018-10-26 12:31] VITALS: BP 167/88
== END 2018-10-26 13:10 | disposition home or self-care (01) ==
LOC: N.4E 16:53 → N.ED 16:53 → SUATTDRO 22:10 → N.4E 22:55
PROVIDERS: ADMIT Internal Medicine; ATTEND Emergency Medicine